=== PATIENT | female | born 1960 | race Caucasian/White ===

== ENCOUNTER → 2022-08-17 12:05 | Outpatient (CLI) | payer OTHER, SELFPAY ==
--- NOTE | ~2022-08-17 | MR_ITS ---
EXAMINATION: MR shoulder LT wo con DATE: 08/17/2022 12:43 INDICATION: Left shoulder pain TECHNIQUE: Magnetic resonance imaging (MRI) of the left shoulder was performed without intravenous co ntrast. Sequences included axial PD-weighted FS FSE, coronal oblique PD-weighted FS FSE, coronal obli que T2-weighted FS FSE, sagittal PD-weighted FS FSE, and sagittal T1-weighted SE. COMPARISON: None. FINDINGS: Coracoacromial arch: The acromion undersurface is flat in morphology (type I). The coracoacromial ligament is normal. Mild acromioclavicular osteoarthritis. Rotator cuff: Moderate supraspinatus and mild infraspinatus tendinopathy without tear. Subscapularis and teres abena r tendons are normal. Normal rotator cuff muscle bulk and signal. Biceps tendon, glenoid labrum and glenohumeral cartilage: Advanced glenohumeral osteoarthritis with large regions of pleural/near full-thickness cartilage loss and prominent subarticular cystic changes across the majority of the glenoid and at the posterior parker perior aspect of the humeral head where there is some remodeling of the articular surface. Large sarah inal osteophytes along the inferior margin of the humeral head. There is degenerative tearing of the posterior superior to posterior and inferior labrum. Long head biceps tendon is normal. Fluid: Physiologic amount of fluid in the glenohumeral joint and biceps tendon sheath. No loose osteochondr al bodies. No abnormal increased fluid signal in the subacromial/subdeltoid bursa to suggest bursitis . Bones: Mild cephalad subluxation of the humeral head with respect to the glenoid which may be related to the osteoarthritis related cartilage loss and remodeling. No fracture or pathologic marrow replacing pro cess. IMPRESSION: 1. Advanced left glenohumeral osteoarthritis with associated degenerative tearing of the glenoid labr um. 2. Moderate supraspinatus and mild infraspinatus tendinopathy without discrete tear. 2. Mild acromioclavicular osteoarthritis. Reviewed, dictated and finalized at location A. IMPRESSION: 1. Advanced left glenohumeral osteoarthritis with associated degenerative teari ng of the glenoid labrum. 2. Moderate supraspinatus and mild infraspinatus tendinopathy without discrete tear. 2. Mild acromioclavicular osteoarthritis.
== END ==
PROVIDERS: PCP Internal Medicine; Visit Provider Orthopaedic Surgery
DX: M19.012 Primary osteoarthritis, left shoulder (principal)
CPT/HCPCS: 73221